=== PATIENT | male | born 1970 | race Caucasian/White ===

== ENCOUNTER 2019-03-02 09:32 | Emergency (ER) | payer SELFPAY ==
--- NOTE | 2019-03-02 09:55 | ER ---
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 Transition of care: patient was not received from another setting of care. Onset of symptoms was March 02, 2019. Risk Assessment: Do you want to hurt yourself or someone else? Patient reports no desire to harm self or others. Initial Sepsis Screen: Does the patient meet any 2 criteria? No. Patient's initial sepsis screen is negative. Does the patient have a suspected source of infection? No. Patient's initial sepsis screen is negative. Care prior to arrival: None. 09:36 Method Of Arrival: Wheelchair 09:36 Acuity: HERMAN 4 hj Historical: - Allergies: 09:38 PENICILLINS; hj - PMHx: 09:38 None; hj - PSHx: 09:38 Knee surgery; hj - Immunization history:: Adult Immunizations unknown. - Social history:: Smoking status: Patient/guardian denies using tobacco. - Ebola Screening: : No symptoms or risks identified at this time. Screenin:04 Abuse screen: Denies threats or abuse. Denies injuries from another. Nutritional ph screening: No deficits noted. Tuberculosis screening: No symptoms or risk factors identified. Fall Risk None identified. Assessment: 10:03 General: Appears in no apparent distress. uncomfortable, obese, well groomed, Behavior ph is calm, cooperative, appropriate for age, Denies fever. Pain: Complains of pain in right low back Pain radiates to right hip. Neuro: Level of Consciousness is awake, alert, obeys commands, Oriented to person, place, time, situation. Cardiovascular: Capillary refill < 3 seconds in bilateral fingers Patient's skin is warm and dry. Respiratory: Airway is compromised Respiratory effort is even, unlabored, Respiratory pattern is regular, symmetrical. GI: No signs and/or symptoms were reported involving the gastrointestinal system. Derm: Skin is intact, is healthy with good turgor, Skin is normal. Musculoskeletal: Circulation, motion, and sensation intact. Range of motion: intact in all extremities. Vital Signs: 09:39 BP 119 / 84; Pulse 69; Resp 18; Temp 98.5(O); Pulse Ox 98% on R/A; Weight 147.42 kg; hj Height 6 ft. 0 in. (182.88 cm); Pain 10/10; 09:39 Body Mass Index 44.08 (147.42 kg, 182.88 cm) hj ED Course: 09:36 Patient arrived in ED. hj 09:38 Triage completed. hj 09:38 Arm band placed on right wrist. hj 09:41 Rubi Graham FNP-C is [facility]. kb 09:41 Brandin Mueller MD is Attending Physician. kb 09:55 Jacqueline Dela Cruz, RN is Primary Nurse. ph 10:04 Patient has correct armband on for positive identification. Bed in low position. Call ph light in reach. Warm blanket given. 10:05 No provider procedures requiring assistance completed. Patient did not have IV access ph during this emergency room visit. Administered Medications: 10:02 Drug: TORadol 60 mg Route: IM; Site: left deltoid; ph 10:29 Follow up: Response: No adverse reaction; Pain is decreased ph Outcome: 09:51 Discharge ordered by . kb 10:29 Discharged to home with crutches. ph 10:29 Condition: good 10:29 Discharge instructions given to patient, Instructed on discharge instructions, follow up and referral plans. no driving heavy equipment, Demonstrated understanding of instructions, follow-up care, medications, Prescriptions given X 2. 10:30 Patient left the ED. ph Signatures: Rubi Graham FNP-C FNP-Ckb Hall, Patricia, STEFFANIE RN ph Pelon Keller RN RN Corrections: (The following items were deleted from the chart) 09:40 09:39 Pulse 69bpm; Resp 18bpm; Pulse Ox 98% RA; Temp 98.5F Oral; 147.42 kg; Height 6 hj ft. 0 in.; BMI: 44.0; Pain 10/10; hj
--- NOTE | 2019-03-02 09:55 | EDPHYS ---
Physician Documentation [facility] Name: Dontae Pompa Age: 48 yrs Sex: Male : 1970 Arrival Date: 03/02/2019 Time: 09:36 Bed 13 Private MD: ED Physician Brandin Mueller HPI: 03/02 09:47 This 48 yrs old Male presents to ER via Wheelchair with complaints of Back kb Pain. 09:47 The patient presents with pain that is acute. The symptoms are located in the right low kb back. Onset: The symptoms/episode began/occurred 7 day(s) ago. The pain does not radiate. Associated signs and symptoms: Pertinent positives: none. The problem was sustained when bending over, when lifting heavy object, from twisting. Modifying factors: The patient symptoms are alleviated by rest, the patient symptoms are aggravated by any movement. Severity of symptoms: At their worst the symptoms were moderate, in the emergency department the symptoms are unchanged. The patient has not experienced similar symptoms in the past. The patient has not recently seen a physician. Pt states he was carrying heavy buckets and thinks he twisted wrong. Started having right low back/buttock pain after that. Occurred 7 days ago. Denies radiated pain, numbness, tingling, urinary issues. . Historical: - Allergies: 09:38 PENICILLINS; hj - PMHx: 09:38 None; hj - PSHx: 09:38 Knee surgery; hj - Immunization history:: Adult Immunizations unknown. - Social history:: Smoking status: Patient/guardian denies using tobacco. - Ebola Screening: : No symptoms or risks identified at this time. ROS: 09:47 Constitutional: Negative for fever, chills, and weight loss, Cardiovascular: Negative kb for chest pain, palpitations, and edema, Respiratory: Negative for shortness of breath, cough, wheezing, and pleuritic chest pain, Abdomen/GI: Negative for abdominal pain, nausea, vomiting, diarrhea, and constipation, : Negative for injury, bleeding, discharge, and swelling, MS/Extremity: Negative for injury and deformity, Skin: Negative for injury, rash, and discoloration, Neuro: Negative for headache, weakness, numbness, tingling, and seizure. 09:47 Back: Positive for pain with movement, of the right low back. Exam: 09:47 Constitutional: This is a well developed, well nourished patient who is awake, alert, kb and in no acute distress. Head/Face: Normocephalic, atraumatic. Chest/axilla: Normal chest wall appearance and motion. Nontender with no deformity. No lesions are appreciated. Cardiovascular: Regular rate and rhythm with a normal S1 and S2. No gallops, murmurs, or rubs. Normal PMI, no JVD. No pulse deficits. Respiratory: Lungs have equal breath sounds bilaterally, clear to auscultation and percussion. No rales, rhonchi or wheezes noted. No increased work of breathing, no retractions or nasal flaring. Abdomen/GI: Soft, non-tender, with normal bowel sounds. No distension or tympany. No guarding or rebound. No evidence of tenderness throughout. Skin: Warm, dry with normal turgor. Normal color with no rashes, no lesions, and no evidence of cellulitis. MS/ Extremity: Pulses equal, no cyanosis. Neurovascular intact. Full, normal range of motion. Neuro: Awake and alert, GCS 15, oriented to person, place, time, and situation. Cranial nerves II-XII grossly intact. Motor strength 5/5 in all extremities. Sensory grossly intact. Cerebellar exam normal. Normal gait. 09:47 Back: pain, that is moderate, of the right low back, ROM is painful, with all movement, Pt can stand and move, but has pain with position changes. No tenderness upon palpation. States "I don't really have the pain right now." . Vital Signs: 09:39 BP 119 / 84; Pulse 69; Resp 18; Temp 98.5(O); Pulse Ox 98% on R/A; Weight 147.42 kg; hj Height 6 ft. 0 in. (182.88 cm); Pain 10/10; 09:39 Body Mass Index 44.08 (147.42 kg, 182.88 cm) MDM: 09:41 Patient medically screened. kb 09:51 Data reviewed: vital signs, nurses notes. Data interpreted: Pulse oximetry: on room air kb is 98 %. Interpretation: normal. Counseling: I had a detailed discussion with the patient and/or guardian regarding: the historical points, exam findings, and any diagnostic results supporting the discharge/admit diagnosis, the need for outpatient follow up, a family practitioner, to return to the emergency department if symptoms worsen or persist or if there are any questions or concerns that arise at home. 09:52 ED course: No pain or tenderness in hip or spine. Pain is right lower back/right upper kb buttock. Administered Medications: 10:02 Drug: TORadol 60 mg Route: IM; Site: left deltoid; ph 10:29 Follow up: Response: No adverse reaction; Pain is decreased ph Disposition: 10:56 Co-signature as Attending Physician, Brandin Mueller MD. rn Disposition: 03/02/19 09:51 Discharged to Home. Impression: Low back pain. - Condition is Stable. - Discharge Instructions: Back Injury Prevention, [id number], Back Pain, Adult, [id number], Back Exercises, [id number]. - Prescriptions for Cyclobenzaprine 10 mg Oral Tablet - take 1 tablet by ORAL route every 8 hours As needed; 21 tablet. Diclofenac Sodium 75 mg Oral Tablet, Delayed Release (E.C.) - take 1 tablet by ORAL route 2 times per day As needed; 30 tablet. - Medication Reconciliation Form, Thank You Letter, Antibiotic Education, Prescription Opioid Use, Work release form form. - Follow up: Emergency Department; When: As needed; Reason: Worsening of condition. Follow up: Private Physician; When: 2 - 3 days; Reason: Recheck today's complaints, Continuance of care, Re-evaluation by your physician. Signatures: Rubi Graham, DRUM DRIER-C DRUM DRIER-Ckb Brandin Mueller MD MD rn Hall, Patricia, RN RN Pelon Keller RN RN Corrections: (The following items were deleted from the chart) 10:30 09:51 03/02/2019 09:51 Discharged to Home. Impression: Low back pain. Condition is ph Stable. Forms are Medication Reconciliation Form, Thank You Letter, Antibiotic Education, Prescription Opioid Use. Follow up: Emergency Department; When: As needed; Reason: Worsening of condition. Follow up: Private Physician; When: 2 - 3 days; Reason: Recheck today's complaints, Continuance of care, Re-evaluation by your physician. kb
[2019-03-02] MEDS ORDERED: KETOROLAC 30 MG/ML INJ ONE (10:13)
== END 2019-03-02 10:30 | disposition home or self-care (01) ==
LOC: ER 09:32
DX: M54.5 Low back pain (principal); Z88.0 Allergy status to penicillin
CPT/HCPCS: 96372; 99283